=== PATIENT | female | born 1945 ===

== ENCOUNTER 2020-01-31 22:03 | Emergency (ER) | payer SELFPAY ==
[~2020-01-31] VITALS: Ht 167.6 cm; Wt 78.0 kg
[2020-01-31 22:21] VITALS: BP 110/52
[2020-01-31] MEDS ORDERED: SYNTHROID (22:35)
[2020-01-31] MEDS ORDERED: COZAAR (22:35)
[2020-01-31] MEDS ORDERED: COZ (22:35)
--- NOTE | 2020-01-31 22:36 | NUR ---
PT STATES SHE DOESN'T WANT THE [facility] BECAUSE SHE DOESN'T HAVE ANY CUTS. STATES "I WAS HAPPY BEING DRUNK AND NOW I'M NOT HAPPY".
[2020-01-31] MEDS ORDERED: DIPH,PERTUSS(ACELL),TET VAC/PF 0.5 ML IM-VACC ONE ×2 (23:00→23:06)
--- NOTE | 2020-01-31 23:00 | NUR ---
PT REPORT TO SAMUEL COLEMAN. PT CARE TRANSFERRED.
--- NOTE | 2020-01-31 23:10 | NUR ---
PT AT CT AT THIS TIME.
== END 2020-02-01 00:06 | disposition home or self-care (01) ==
LOC: ED 22:33
DX: S01.01XA Laceration without foreign body of scalp, initial encounter (principal); F10.120 Alcohol abuse with intoxication, uncomplicated; W01.0XXA Fall on same level from slipping, tripping and stumbling without subsequent striking against object, initial encounter; Y93.89 Activity, other specified; Y92.511 Restaurant or cafe as the place of occurrence of the external cause; Y99.8 Other external cause status; Y90.0 Blood alcohol level of less than 20 mg/100 ml
CPT/HCPCS: 70450; 90471; 90715; 99284